=== PATIENT | male | born 1950 | race Two or more races ===

== ENCOUNTER 2025-06-04 12:45 | Inpatient (IN) | payer OTHER ==
[~2025-06-04] VITALS: Ht 167.6 cm; Wt 70.3 kg
[2025-06-05] MEDS ORDERED: SIMVASTATIN5 MG PO (08:14)
[2025-06-19] MEDS ORDERED: levoFLOXacin IN DEXTROSE 5 % 5 MG/ML PIGGYBAG IV ONE ×2 (07:02→08:00)
[2025-06-19] MEDS ORDERED: METRONIDAZOLE/SODIUM CHLORIDE 500 MG/100 ML PIGGYBACK IV ONE ×2 (07:02→08:00)
[2025-06-19] MEDS ORDERED: BUPIVACAINE HCL/MPF 0.5% 30ML VIAL ONE (07:09)
[2025-06-19] MEDS ORDERED: LIDOCAINE HCL 1%/EPINEPHRINE 20ML VIAL IJ ONE ×2 (07:10→08:00)
[2025-06-19] MEDS ORDERED: DEXAMETHASONE SODIUM PHOSPHATE 4 MG/ML VIAL ONE (07:53)
[2025-06-19] MEDS ORDERED: SUGAMMADEX SODIUM 200 MG/2 ML VIAL IV ONE (08:00)
[2025-06-19] MEDS ORDERED: BUPIVACAINE HCL/PF 0.25% 30ML VIAL InF ONE (08:00)
[2025-06-19] MEDS ORDERED: 0.9 % SODIUM CHLORIDE 1,000 ML IV SCH (09:30)
[2025-06-19] MEDS ORDERED: OxyCODONE HCL 5 MG TABLET (ROXICODONE) PO PRN (09:30)
[2025-06-19] MEDS ORDERED: DEXTROSE 50 % IN WATER 0.5 G/ML VIAL IV PRN (09:30)
[2025-06-19] MEDS ORDERED: MORPHINE SULFATE 4 MG/ML CARTRIDGE IV PRN (09:30)
[2025-06-19] MEDS ORDERED: ONDANSETRON HCL 2 MG/ML VIAL IV PRN (09:30)
[2025-06-19] MEDS ORDERED: ATORVASTATIN CA40 MG (10:43)
[2025-06-19] MEDS ORDERED: LATANOPROST2.5 ML (10:43)
[2025-06-19 11:56] LABS: BASO % 0.3 % (0.1-1.2); EOS # 0.16 (0.04-0.54); EOS % 1.6 % (0.7-7.0); LYMPH # 1.17 (1.18-3.74); LYMPH % 11.8 % (19.3-53.1); MEAN PLATELET VOLUME 11.40 fl (9.4-12.4); MONO # 0.20 (0.24-0.82); MONO % 2.0 % (4.7-12.5); NEUT # 8.29 (1.56-6.13); NEUT % 83.8 % (34.0-71.1); RED CELL DISTRIBUTION WIDTH 11.9 % (11.6-14.4)
[2025-06-19 12:18] VITALS: BP 144/80; O2SAT 95
[2025-06-19 12:34] LABS: BUN CREA RATIO 13.0 (7.0-25.0); CREATININE SERUM 1.1 mg/dL (0.70-1.30); GFR 65.62; GLUCOSE FASTING 132.0 mg/dL (65-100); OSMOLALITY SERUM 282.0 MOSM/KG (275-295)
[2025-06-19] MEDS ORDERED: HYOSCYAMINE SULFATE 0.125 MG TAB.SUBL SL SCH (13:00)
[2025-06-19] MEDS ORDERED: ACETAMINOPHEN 500 MG GEL..CAP PO SCH (14:00)
[2025-06-19] MEDS ORDERED: METRONIDAZOLE/SODIUM CHLORIDE 500 MG/100 ML PIGGYBACK IV SCH (17:00)
[2025-06-19] MEDS ORDERED: GABAPENTIN 300 MG CAPSULE PO SCH (17:00)
[2025-06-19] MEDS ORDERED: FAMOTIDINE/PF 20 MG/2 ML VIAL IV PUSH SCH (21:00)
[2025-06-20 01:00] VITALS: BP 106/61; O2SAT 98
[2025-06-20 06:17] LABS: BASO % 0.2 % (0.1-1.2); EOS # 0.00 (0.04-0.54); EOS % 0.0 % (0.7-7.0); LYMPH # 0.94 (1.18-3.74); LYMPH % 6.0 % (19.3-53.1); MEAN PLATELET VOLUME 11.80 fl (9.4-12.4); MONO # 1.19 (0.24-0.82); MONO % 7.7 % (4.7-12.5); NEUT # 13.32 (1.56-6.13); NEUT % 85.6 % (34.0-71.1); RED CELL DISTRIBUTION WIDTH 11.6 % (11.6-14.4)
[2025-06-20 07:02] LABS: BUN CREA RATIO 14.0 (7.0-25.0); CREATININE SERUM 1.06 mg/dL (0.70-1.30); GFR 68.48; GLUCOSE FASTING 117.0 mg/dL (65-100); OSMOLALITY SERUM 281.0 MOSM/KG (275-295)
[2025-06-20 08:39] VITALS: BP 131/71; O2SAT 96
[2025-06-20 16:20] VITALS: BP 137/86; O2SAT 98
[2025-06-20] MEDS ORDERED: ENOXAPARIN SODIUM 40 MG/0.4 ML SYRINGE SUBCUTANEO SCH (17:00)
[2025-06-20] MEDS ORDERED: ATORVASTATIN CALCIUM 20 MG TABLET PO SCH (17:00)
[2025-06-21 00:30] VITALS: BP 119/54; O2SAT 98
[2025-06-21 07:29] LABS: BASO % 0.4 % (0.1-1.2); EOS # 0.29 (0.04-0.54); EOS % 2.7 % (0.7-7.0); LYMPH # 2.22 (1.18-3.74); LYMPH % 20.5 % (19.3-53.1); MEAN PLATELET VOLUME 11.90 fl (9.4-12.4); MONO # 0.66 (0.24-0.82); MONO % 6.1 % (4.7-12.5); NEUT # 7.57 (1.56-6.13); NEUT % 69.9 % (34.0-71.1); RED CELL DISTRIBUTION WIDTH 12.0 % (11.6-14.4)
[2025-06-21 08:00] VITALS: BP 144/76; O2SAT 98
[2025-06-21 08:01] LABS: BUN CREA RATIO 13.0 (7.0-25.0); CREATININE SERUM 1.11 mg/dL (0.70-1.30); GFR 64.93; GLUCOSE FASTING 92.0 mg/dL (65-100); OSMOLALITY SERUM 289.0 MOSM/KG (275-295)
[2025-06-21] MEDS ORDERED: ENOXAPARIN SODIUM 40 MG/0.4 ML SYRINGE SUBCUTANEO SCH (09:00)
[2025-06-21] MEDS ORDERED: HYOSCYAMINE0.125 M1 SL (09:45)
[2025-06-21] MEDS ORDERED: INTESTINEX680 M1 PO (09:46)
== END 2025-06-21 12:10 | disposition home or self-care (01) | DRG 331 ==
LOC: SURH 06-12 07:00 → O/R 06-19 06:00 → SURG 06-19 11:21 → SURH 06-20 15:40
PROVIDERS: Internal Medicine Geriatric Medicine; ADMIT Surgery; ATTEND Surgery
PROC: 07BB4ZZ Excision of Mesenteric Lymphatic, Percutaneous Endoscopic Approach (ICD-10-PCS; 2025-06-19)
PROC: 0DTF4ZZ Resection of Right Large Intestine, Percutaneous Endoscopic Approach (ICD-10-PCS; principal; 2025-06-19 07:00)
DX: D12.2 Benign neoplasm of ascending colon (principal); R73.01 Impaired fasting glucose; R78.5 Finding of other psychotropic drug in blood; F17.200 Nicotine dependence, unspecified, uncomplicated